=== PATIENT | male | born 1960 | race Caucasian/White ===

== ENCOUNTER 2021-01-06 20:17 | Observation (INO) ==
[2021-01-06 20:51] LABS: Basophils # (auto) 0.05 K/uL (0-0.2); Basophils % (auto) 0.5 %; Eosinophils # (auto) 0.32 K/uL (0-0.5); Eosinophils % (auto) 2.9 %; Hematocrit (blood only) 41.2 % (42-52); Hemoglobin 14.2 g/dL (14.0-18.0); Immature Granulocytes # (auto) 0.03 K/uL (0.00-0.02); Immature Granulocytes % (auto) 0.3 %; Lymphocytes # (auto) 3.24 K/uL (1.2-3.4); Lymphocytes % (auto) 29.6 %; Mean Corpuscular Hemoglobin 28.6 pg (25-34); Mean Corpuscular Hgb Conc 34.5 g/dL (32-36); Mean Corpuscular Volume 83.1 fL (80-100); Mean Platelet Volume 9.5 fL (7.4-10.4); Monocytes # (auto) 0.78 K/uL (0.11-0.59); Monocytes % (auto) 7.1 %; Neutrophils # (auto) 6.54 K/uL (1.4-6.5); Neutrophils % (auto) 59.6 %; Platelet Count 201 K/uL (130-400); RDW Coefficient of Variation 14.2 % (11.5-14.5); RDW Standard Deviation 43.2 fL (36.4-46.3); Red Blood Count 4.96 M/uL (4.7-6.1); White Blood Count 10.96 K/uL (4.8-10.8)
[2021-01-06] MEDS ORDERED: MoRPHine SULFATE 4 MG/ML 1 ML CARP\\VIAL IV STA ×2 (20:57→23:44)
[2021-01-06] MEDS ORDERED: ONDANSETRON INJ 2 MG/ML 2 ML VIAL IV STA (20:57)
[2021-01-06] MEDS ORDERED: SODIUM CHLORIDE 0.9% 1000ML 1,000 ML IV ONE (20:57)
[2021-01-06 21:09] LABS: Alanine Aminotransferase 26 U/L (12-78); Albumin Level 3.9 gm/dl (3.4-5.0); Aspartate Aminotransferase 19 U/L (15-37); BUN Creatinine Ratio 12.3 (10-20); Blood Urea Nitrogen 13 mg/dl (7-18); Calcium 8.9 mg/dl (8.5-10.1); Carbon Dioxide 29 mmol/L (21-32); Chloride 104 mmol/L (98-107); Creatinine Clr Calc Pharmacy 66.2 ml/min; Est GFR (African American) 87.6; Est GFR (Non-African American) 75.6; Glucose 114 mg/dl (70-99); Lipase 264 U/L (73-393); Potassium 3.7 mmol/L (3.5-5.1); Sodium 137 mmol/L (136-145)
[2021-01-06 21:12] LABS: Alkaline Phosphatase 105 U/L (45-117); Bilirubin,Total 0.5 mg/dl (0.2-1); Globulin 3.8 gm/dl (2.5-4.0); Total Protein 7.7 gm/dl (6.4-8.2)
[2021-01-06 21:25] LABS: Troponin I < 0.015 ng/ml (0-0.045)
--- NOTE | 2021-01-06 21:25 | Emergency Department Note ---
History of Present Illness General Chief complaint: Abdominal Pain Stated complaint: ABD. PAIN Time Seen by Provider: 01/06/21 20:41 Source: patient and family (Sister who is at the bedside and driving) Mode of arrival: ambulatory Limitations: no limitations History of Present Illness Maximum Pain Intensity: 7 This patient comes in with abdominal pain and bloating. It started a couple hours ago. He feels bloated he does have IBS but says this feels more severe he has been belching a lot and says that makes him feel better. He had a normal bowel movement at 10:00 in the morning. He has not had the Covid vaccine or the disease. No Covid symptoms specifically denies chest pain or shortness of breath or cough. He does have chronic back pain related to disc but nothing new or different. He had hernia surgery at age 14 and has had bladder cancer surgery that has been done endoscopically. Home Medications Medication Instructions Recorded Confirmed Type simethicone [Gas-X Extra Strength] 375 mg PO ONCE 01/06/21 01/06/21 History Allergies Allergy/AdvReac Type Severity Reaction Status Date / Time No Known Allergies Allergy Unverified 01/06/21 21:42 Past Med/Surg History Social History Smoking Status: Current every day smoker Tobacco Type: Cigarettes Preferred Language: Guinean Review of Systems A total of 10 systems reviewed and were otherwise negative Physical Exam Vital Signs Vital Signs - 24 hr 01/06/21 20:26 01/06/21 21:11 01/06/21 21:30 Temperature 36.6 C Temperature Source Oral Pulse Rate 70 70 73 Pulse Rate from SpO2 Sensor 70 71 Respiratory Rate 18 15 14 Respiratory Effort / Characteristics Non-Labored Spontaneous Respiratory Depth Normal Respiratory Pattern Regular Blood Pressure 160/58 H 131/84 133/92 Blood Pressure Mean 92 99 105 Blood Pressure Position Lying Pulse Oximetry 98 100 100 Oxygen Delivery Method Room Air Room Air Room Air Sepsis Recent Fever Within 48 Hours No Sepsis New/Unexplained Change in Mental Status No Sepsis Action Taken by Nursing No Action Required 01/06/21 22:00 01/06/21 22:30 01/06/21 23:00 Temperature Temperature Source Pulse Rate 77 76 71 Pulse Rate from SpO2 Sensor 76 76 73 Respiratory Rate 14 16 16 Respiratory Effort / Characteristics Respiratory Depth Respiratory Pattern Blood Pressure 127/76 112/73 117/77 Blood Pressure Mean 93 86 90 Blood Pressure Position Pulse Oximetry 99 100 98 Oxygen Delivery Method Room Air Room Air Sepsis Recent Fever Within 48 Hours Sepsis New/Unexplained Change in Mental Status Sepsis Action Taken by Nursing 01/06/21 23:30 01/07/21 00:00 01/07/21 00:30 Temperature Temperature Source Pulse Rate 69 70 75 Pulse Rate from SpO2 Sensor 71 71 75 Respiratory Rate 16 12 20 Respiratory Effort / Characteristics Respiratory Depth Respiratory Pattern Blood Pressure 112/79 122/84 127/85 Blood Pressure Mean 90 96 99 Blood Pressure Position Pulse Oximetry 98 97 97 Oxygen Delivery Method Room Air Sepsis Recent Fever Within 48 Hours Sepsis New/Unexplained Change in Mental Status Sepsis Action Taken by Nursing 01/07/21 01:00 Temperature Temperature Source Pulse Rate 74 Pulse Rate from SpO2 Sensor 75 Respiratory Rate 13 Respiratory Effort / Characteristics Respiratory Depth Respiratory Pattern Blood Pressure 112/78 Blood Pressure Mean 89 Blood Pressure Position Pulse Oximetry 97 Oxygen Delivery Method Sepsis Recent Fever Within 48 Hours Sepsis New/Unexplained Change in Mental Status Sepsis Action Taken by Nursing General: Well developed well nourished middle-age male who appears uncomfortable but in no acute respiratory distress, breathing comfortably on room air. Normal speech HEENT: Normal cephalic atraumatic. Pupils are equal round and reactive to light. Extraocular movements are intact. Oropharynx is pink with moist mucous membranes. No swelling of the mouth lips or tongue. Neck: Supple with a midline trachea. No meningeal signs or stiffness, no JVD or bruits. No Stridor. Chest: Clear to auscultation bilaterally. No wheezes or rhonchi. No increased work of breathing. Heart: Regular rate and rhythm without murmurs or gallops. Abdomen: Soft he does appear to be distended and mildly diffusely tender but without peritonitis and without rebound guarding or rigidity. Extremities: No cyanosis clubbing or edema. No calf tenderness or assymetry Spine/Back. Non tender to palpation. No CVA tenderness Skin: Good turgor without rashes. Neurologic exam: Cranial nerves two through 12 are intact. Motor and sensation are intact and symmetrical throughout. Course Administered Medications Discontinued Medications Sodium Chloride (Nss 1000ml) 1,000 mls @ 999 mls/hr IV .Q1H1M ONE Stop: 01/06/21 21:57 Last Infusion: 01/06/21 22:23 Dose: 0 mls/hr Documented by: [id number] Admin: 01/06/21 21:02 Dose: 999 mls/hr Documented by: [id number] Ioversol (Optiray 300 100ml) 89 ml IV ONCE ONE Stop: 01/06/21 22:07 Last Admin: 01/06/21 22:06 Dose: 89 ml Documented by: [id number] Morphine Sulfate (Morphine Sulfate 4 Mg/Ml 1 Ml Carp\Vial) 4 mg IV NOW STA Stop: 01/06/21 20:58 Last Admin: 01/06/21 21:01 Dose: 4 mg Documented by: [id number] Morphine Sulfate (Morphine Sulfate 4 Mg/Ml 1 Ml Carp\Vial) 4 mg IV NOW STA Stop: 01/06/21 23:45 Last Admin: 01/06/21 23:49 Dose: 4 mg Documented by: [id number] Ondansetron HCl (Ondansetron Inj 2 Mg/Ml 2 Ml Vial) 4 mg IV NOW STA Stop: 01/06/21 20:58 Last Admin: 01/06/21 21:01 Dose: 4 mg Documented by: [id number] Medical Decision Making Differential Diagnosis Bowel obstruction, IBS, AAA, electrolyte or metabolic abnormality, hernia, infection, sepsis, cardiac disease Medical Records Attestation: I reviewed the patient's medical records. Home Medications Current Medication List: was personally reviewed by me Laboratory Data Result diagrams: 01/06/21 20:32 01/06/21 20:32 Lab Results 01/06/21 01/06/21 01/06/21 Range/Units 20:32 20:32 23:45 WBC 10.96 H (4.8-10.8) K/uL RBC 4.96 (4.7-6.1) M/uL Hgb 14.2 (14.0-18.0) g/dL Hct 41.2 L (42-52) % MCV 83.1 (80-100) fL MCH 28.6 (25-34) pg MCHC 34.5 (32-36) g/dL RDW Std Deviation 43.2 (36.4-46.3) fL RDW Coeff of Mena 14.2 (11.5-14.5) % Plt Count 201 (130-400) K/uL MPV 9.5 (7.4-10.4) fL Immature Gran % (Auto) 0.3 % Neut % (Auto) 59.6 % Lymph % (Auto) 29.6 % [place] % (Auto) 7.1 % Eos % (Auto) 2.9 % Baso % (Auto) 0.5 % Neut # (Auto) 6.54 H (1.4-6.5) K/uL Lymph # (Auto) 3.24 (1.2-3.4) K/uL [place] # (Auto) 0.78 H (0.11-0.59) K/uL Eos # (Auto) 0.32 (0-0.5) K/uL Baso # (Auto) 0.05 (0-0.2) K/uL Immature Gran # (Auto) 0.03 H (0.00-0.02) K/uL Sodium 137 (136-145) mmol/L Potassium 3.7 (3.5-5.1) mmol/L Chloride 104 (98-107) mmol/L Carbon Dioxide 29 (21-32) mmol/L Anion Gap 4.0 (3-11) BUN 13 (7-18) mg/dl Creatinine 1.07 (0.6-1.4) mg/dl Est Cr Clr Drug Dosing 66.2 ml/min Est GFR ( Amer) 87.6 Est GFR (Non-Af Amer) 75.6 BUN/Creatinine Ratio 12.3 (10-20) Glucose 114 H (70-99) mg/dl Calcium 8.9 (8.5-10.1) mg/dl Total Bilirubin 0.5 (0.2-1) mg/dl AST 19 (15-37) U/L ALT 26 (12-78) U/L Alkaline Phosphatase 105 (45-117) U/L Troponin I < 0.015 (0-0.045) ng/ml Total Protein 7.7 (6.4-8.2) gm/dl Albumin 3.9 (3.4-5.0) gm/dl Globulin 3.8 (2.5-4.0) gm/dl Albumin/Globulin Ratio 1.0 (0.9-2) Lipase 264 (73-393) U/L COVID-19 Eval Order CovFluRsv at [facility] Imaging Data Attestation: I personally reviewed and interpreted this imaging study as follows: Radiologist's Impression: Abdomen/Pelvis CT 04/24/21 20:58 CT SCAN OF THE ABDOMEN AND PELVIS WITH IV CONTRAST CLINICAL HISTORY: Left-sided abdominal pain. COMPARISON STUDY: No priors. TECHNIQUE: Following the IV administration of 89 cc of Optiray 300, CT scan of the abdomen and pelvis is performed from the lung bases to the proximal femora. Images are reviewed in the axial, sagittal, and coronal planes. IV contrast was administered without complication. A dose lowering technique was utilized adhering to the principles of ALARA. CT DOSE: 253.29 mGy.cm FINDINGS: Lung bases: The heart is normal in size and without pericardial effusion. Em physematous change is noted at the lung bases. There is bibasilar scarring/atelectasis. No airspace consolidation or pleural effusion is identified. Liver: The contrast-enhanced liver is mildly enlarged, measuring 18.3 cm in length. Attenuation is heterogeneous. There is no intrahepatic biliary ductal dilatation. The hepatic veins and portal veins are patent. Gallbladder: Unremarkable. Spleen: Normal in size and attenuation. Pancreas: Unremarkable. Adrenal glands: Unremarkable. Kidneys: The contrast enhanced kidneys are normal in size and without hydronephrosis. The kidneys enhance symmetrically. A 1.5 cm cyst is seen in the right upper pole. A punctate nonobstructing calculus is noted in the left lower pole. Abdominal vasculature: The abdominal aorta is normal in course and caliber noting moderate to advanced atherosclerotic calcification. Bowel: The small bowel loops are mildly distended and fluid-filled measuring up to 2.8 cm in diameter. Scattered air-fluid levels are noted. The distal small bowel loops and colon are relatively decompressed. A discrete transition point is not identified. No thick walled bowel loops are identified. There is no pneumatosis intestinalis or portal venous gas. The appendix is normal as visualized. Peritoneum: There is no intraperitoneal free air or abdominal ascites. Lymphadenopathy: None. Pelvic viscera: The prostate gland is mildly enlarged and heterogeneous noting median lobe hypertrophy. The bladder wall is thickened and trabeculated suggesting chronic outlet obstruction. A 9 mm enhancing nodule is suggested along the posterior wall of the bladder on image #333. Skeletal structures: The skeletal structures are osteopenic. There is mild lumbosacral spondylosis. No lytic or blastic lesions are seen. Soft tissues: The patient is cachectic. IMPRESSION: 1. The proximal small bowel loops are distended and fluid-filled, and the distal small bowel is decompressed. Although a discrete transition point is not identified, the appearance suggests a low-grade/developing small bowel obstruction. 2. No thick walled bowel loops identified. There is no pneumatosis intestinalis, portal venous gas, or intraperitoneal free air. 3. Emphysema. 4. Prostatomegaly with evidence of chronic bladder outlet obstruction. 5. A 9 mm enhancing nodule is identified along the posterior wall of the bladder. Although this could represent median lobe hypertrophy of the prostate gland, a bladder neoplasm is to be excluded. Follow-up with urology is recommended. 6. There is a punctate nonobstructing left kidney stone. 7. Additional findings as above. ACT 112: Positive. There are findings on this exam that require communication between the performing entity and the patient following Patient Test Result Information Act ([place] Act 112) guidelines. Electronically signed by: Venu Alberto M.D. 01/06/2021 10:42 PM ECG Data Attestation: I personally reviewed and interpreted this ECG as follows: Indication: + abdominal pain Rate (beats per minute): 72 Rhythm: + normal sinus ECG Intervals/blocks: + Normal QRS and + Normal QT ECG Rio: + Normal ECG ST segments: + Normal ST segments ECG Findings: no PACs and no PVCs Comparison ECG Date: no prior available MDM Narrative This patient comes in as described above. He has abdominal pain and distention and appears uncomfortable. He is not driving. IV access wasestablished and he was hydrated with IV normal saline bolus. He was also given morphine 4 mg IV and Zofran 4 mg IV. EKG was obtained and multiple blood testing was obtained as well. I did order a CAT scan with IV contrast. He has has only a mildly elevated white count but no fever to suggest infection. No significant anemia. No significant electrolyte or metabolic abnormalities. Nothing to suggest liver gallbladder or pancreas disease. He was feeling better with the morphine but then after CAT scan started feeling worse was given additional IV morphine. CAT scan shows a possible evolving small bowel obstruction. There is no discrete transition point. He is not vomiting. He does feel better with belching. Additionally on the CAT scan there is a small area in the bladder near the prostate which could be a lesion or part of the prostate. The patient has had bladder cancer before I recommended that he follow-up and get this rechecked by his urologist. I do not think is causing his symptoms today. I do think he needs to be admitted/observe for bowel rest, IV hydration, observation and further treatment and evaluation. I have consulted Dr. Jean to see the patient in ER for these measures. Impression & Plan SBO (small bowel obstruction), Abdominal pain, Lab test negative for COVID-19 virus, History of bladder cancer Discharge Plan Visit Data Chief Complaint: Abdominal Pain Stated Complaint: ABD. PAIN ED Provider: Jean Infante Discharge Problem: SBO (small bowel obstruction), Abdominal pain, Lab test negative for COVID-19 virus, History of bladder cancer Forms Stand Alone Forms: My [facility] [employer] Prescriptions Prescriptions: No Action simethicone [Gas-X Extra Strength] 125 mg Tablet,Chewable 375 mg PO ONCE RF: 0 Discharge Problem: Abdominal pain Qualifiers: Abdominal location: generalized Qualified Code(s): R10.84 - Generalized abdominal pain
[2021-01-06] MEDS ORDERED: OPTIRAY 300 100mL IV ONE (22:06)
--- NOTE | 2021-01-06 22:43 | CT Scan Report ---
CT SCAN OF THE ABDOMEN AND PELVIS WITH IV CONTRAST CLINICAL HISTORY: Left-sided abdominal pain. COMPARISON STUDY: No priors. TECHNIQUE: Following the IV administration of 89 cc of Optiray 300, CT scan of the abdomen and pelvi s is performed from the lung bases to the proximal femora. Images are reviewed in the axial, sagittal , and coronal planes. IV contrast was administered without complication. A dose lowering technique wa s utilized adhering to the principles of ALARA. CT DOSE: 253.29 mGy.cm FINDINGS: Lung bases: The heart is normal in size and without pericardial effusion. Emphysematous change is not ed at the lung bases. There is bibasilar scarring/atelectasis. No airspace consolidation or pleural e ffusion is identified. Liver: The contrast-enhanced liver is mildly enlarged, measuring 18.3 cm in length. Attenuation is he terogeneous. There is no intrahepatic biliary ductal dilatation. The hepatic veins and portal veins a re patent. Gallbladder: Unremarkable. Spleen: Normal in size and attenuation. Pancreas: Unremarkable. Adrenal glands: Unremarkable. Kidneys: The contrast enhanced kidneys are normal in size and without hydronephrosis. The kidneys enh ance symmetrically. A 1.5 cm cyst is seen in the right upper pole. A punctate nonobstructing calculus is noted in the left lower pole. Abdominal vasculature: The abdominal aorta is normal in course and caliber noting moderate to advance d atherosclerotic calcification. Bowel: The small bowel loops are mildly distended and fluid-filled measuring up to 2.8 cm in diameter . Scattered air-fluid levels are noted. The distal small bowel loops and colon are relatively decompr essed. A discrete transition point is not identified. No thick walled bowel loops are identified. The re is no pneumatosis intestinalis or portal venous gas. The appendix is normal as visualized. Peritoneum: There is no intraperitoneal free air or abdominal ascites. Lymphadenopathy: None. Pelvic viscera: The prostate gland is mildly enlarged and heterogeneous noting median lobe hypertroph y. The bladder wall is thickened and trabeculated suggesting chronic outlet obstruction. A 9 mm enhan cing nodule is suggested along the posterior wall of the bladder on image #333. Skeletal structures: The skeletal structures are osteopenic. There is mild lumbosacral spondylosis. N o lytic or blastic lesions are seen. Soft tissues: The patient is cachectic. IMPRESSION: 1. The proximal small bowel loops are distended and fluid-filled, and the distal small bowel is decom pressed. Although a discrete transition point is not identified, the appearance suggests a low-grade/ developing small bowel obstruction. 2. No thick walled bowel loops identified. There is no pneumatosis intestinalis, portal venous gas, o r intraperitoneal free air. 3. Emphysema. 4. Prostatomegaly with evidence of chronic bladder outlet obstruction. 5. A 9 mm enhancing nodule is identified along the posterior wall of the bladder. Although this could represent median lobe hypertrophy of the prostate gland, a bladder neoplasm is to be excluded. Follo w-up with urology is recommended. 6. There is a punctate nonobstructing left kidney stone. 7. Additional findings as above. ACT 112: Positive. There are findings on this exam that require communication between the performing entity and the patient following Patient Test Result Information Act ([place] Act 112) guidelines. Electronically signed by: Venu Alberto M.D. 01/06/2021 10:42 PM
[2021-01-07] MEDS ORDERED: ONDANSETRON INJ 2 MG/ML 2 ML VIAL IV PRN (01:03)
[2021-01-07] MEDS ORDERED: MoRPHine SULFATE 4 MG/ML 1 ML CARP\\VIAL IV PRN (01:03)
--- NOTE | 2021-01-07 01:15 | History & Physical Report ---
Date of Service January 07, 2021 Assessment & Plan (1) SBO (small bowel obstruction): 60 yo M PMHx IBS, heavy smoker, history bladder cancer admitted for SBO. SBO: Abdominal pain since this afternoon, waxing and waning, with associated nausea, belching. CTAP this admission with findings of low grade / developing SBO. History of abdominal hernia repair. No history of colon cancer, and UTD on colonoscopy for routine colon cancer screening. NPO with NSS @ 100cc/hr. IV morphine and zofran prn pain/nausea. NGT placed by primary team given tympanitic and distended abdominal exam. Serial abdominal exams. General Surgery consult placed, to see in AM. Hx bladder cancer: History of, follows with Urology. Seen 3 months ago and had cystoscopy which was normal at that time. This admission CTAP shows 9mm bladder lesion. Follow up with Urology on discharge. Smoking abuse: History of. Does not desire nicotine patch. Encouraged cessation. Code Status: FULL CODE DVT ppx: SCDs FEN: NPO, NSS @ 100cc/hr Dispo: Med/Surg with Telemetry, General Surgery consult, serial abdominal exams, NGT (2) Lesion of bladder: History of Present Illness Chief Complaint: abdominal pain Primary Care Provider: NO PCP 60 yo M PMHx IBS, heavy smoker, history bladder cancer presented to the ER with abdominal pain. Hails from [place], but has been in [place] for the last 8 weeks helping his father get his affairs in order (he had stage 4 metastatic pancreatic cancer, and on ). Today he developed waxing and waning moderate to severe abdominal pain with associated anorexia and nausea without emesis. Pain is worse with certain positions including lying on his left side. He has also been belching a lot today. No recent fevers or chills, diarrhea, headache, dizziness, chest pain, SOB. Last BM yesterday. Does have a history of a RLQ hernia repair when he was 14. He is UTD on his colonoscopies for colon cancer screening; last done about a month or so ago which he was told was normal and "good for 5 years". In the ER had CTAP which showed developing SBO. Patient was given IV morphine and Zofran and hospitalist services was consulted for admission. Allergies Allergy/AdvReac Type Severity Reaction Status Date / Time No Known Allergies Allergy Unverified 01/06/21 21:42 Home Medications Medication Instructions Recorded Confirmed Type simethicone [Gas-X Extra Strength] 375 mg PO ONCE 01/06/21 01/06/21 History Past Med/Surg History Social History Smoking Status: Current every day smoker Tobacco Type: Cigarettes Preferred Language: Mohawk Review of Systems Review of Systems: All systems reviewed & are unremarkable except as noted in HPI & below Constitutional: + malaise; no fever and no chills Respiratory: no cough and no dyspnea Cardiovascular: no chest pain, no palpitations and no edema Gastrointestinal: + abdominal pain; no constipation and no diarrhea/loose stools Physical Exam Constitutional: WD/WN, vitals as above Eyes: PERRL, conjunctivae normal, anicteric sclerae ENMT: external ear and nose normal, oropharynx normal Neck: normal visual inspection Respiratory: normal respiratory effort, lungs clear to auscultation Cardiovascular: RRR, no murmur, no edema Gastrointestinal (Abdomen): Inspection/Auscultation: + abdomen distended Percussion/Palpation: + abdomen tender (diffuse, moderate), + tympanic to percussion and + abdomen firm; no guarding Musculoskeletal: no cyanosis or clubbing, extremities motor strength 5/5 Skin: no rashes, warm and dry Neurologic: AAOx3, normal speech. No tremor Psychiatric: Orientation: alert and oriented x 3 Affect: euthymic affect Results & Data Results & Data ([facility]) Vital Signs (Past 12 Hours) Vital Signs Temp Pulse Resp BP Pulse Ox 01/07/21 00:30 75 20 127/85 97 01/07/21 00:00 70 12 122/84 97 01/06/21 23:30 69 16 112/79 98 01/06/21 23:00 71 16 117/77 98 01/06/21 22:30 76 16 112/73 100 01/06/21 22:00 77 14 127/76 99 01/06/21 21:30 73 14 133/92 100 01/06/21 21:11 70 15 131/84 100 01/06/21 20:26 36.6 C 70 18 160/58 H 98 Resident Activity Tracking Resident Involvement: Resident Care Provided Care Provided: Adult [facility] Medicine
[2021-01-07 01:43] LABS: Influenza A virus by PCR Negative (Neg); Influenza B virus by PCR Negative (Neg); RSV by PCR Negative (Neg); SARS CoV2 RNA(COVID-19) InHosp NEGATIVE (Negative)
[2021-01-07 01:58] LABS: Magnesium 2.4 mg/dl (1.8-2.4)
[2021-01-07] MEDS: SODIUM CHLORIDE 0.9% 1000ML 1,000 ML IV SCH ×2 (02:35→12:20)
[2021-01-07] MEDS: ACETAMINOPHEN 1000 MG/100 ML IV IV SCH ×2 (02:36→08:31)
[2021-01-07 04:56] LABS: Appearance Urine Clear (Clear); Bilirubin Urine Negative (Negative); Blood Urine Negative (Negative); Color Urine Yellow; Glucose Urine UA Negative (Negative); Ketones Urine Trace (Negative); Leukocyte Esterase Urine Negative (Negative); Nitrite Urine Negative (Negative); Protein Urine Negative (Negative); Specific Gravity Urine > 1.045 (1.000-1.030); Urobilinogen Urine Negative (Negative)
--- NOTE | 2021-01-07 06:39 | Surgery Consultation ---
Date of Consultation January 07, 2021 Assessment & Plan (1) SBO (small bowel obstruction): Patient has been admitted to the hospital by the medical service. Patient has had an NG tube inserted in the emergency department we will continue this modality until improved bowel function has been returned Provide IV fluid for hydration Provide analgesics Provide antiemetics Once patient has had return of bowel function will consider removing his NG tube with diet advancement subsequently thereafter. We will continue to follow along with the patient is hospitalized Supervising Physician Co-Signing Physician Notes Patient seen and examined, labs and imaging reviewed, agree with above. 60-year-old male with history of IBS and no major abdominal surgery presented to the ER with complaints of abdominal pain and cramping. No flatus since yesterday after morning. Did have a bowel movement yesterday morning. On exam he is afebrile stable vitals. His abdomen is soft, nontender, mildly distended. Labs unremarkable except for a mild leukocytosis. CT scan with minimally distended small bowel with no discrete transition point, may represent partial small bowel obstruction versus an enteritis. At this point we will manage nonoperatively. He may need further GI follow-up if he gets through this without an operation. Surgery will follow. History of Present Illness Reason for Consultation: Small bowel obstruction Attending Physician: Kathleen Jean DO History of Present Illness This is a 60-year-old male who presented to the emergency department last evening secondary to abdominal pain. His abdominal pain began yesterday evening at about 6:00. He does report history of IBS notes he does get abdominal pain of a similar nature from time to time but his pain became so severe that he presented to the emergency department. He denies any fevers, shakes, chills. He denies any nausea vomiting at the present time but did have nausea vomiting earlier. He does note that he had a normal bowel movement yesterday morning but since his pain began he has not passed any flatus or had a bowel movement. He notes that he has not had any abdominal surgeries other than a right inguinal herniorrhaphy in the past. In the emergency department the patient had labs and imaging performed which were independently reviewed by myself. He did have a CT scan of the abdomen that showed concern for a low-grade small bowel obstruction. CBC revealed his white blood cell count was 10.9. His hemoglobin was in the normal range as was his platelet count. Chemistry profile revealed his sodium, potassium, BUN, and creatinine were all within normal range. A lactate level was not elevated. Covid test was performed and was noted to be negative. At the time of my interview the patient was in no distress. Allergies Allergy/AdvReac Type Severity Reaction Status Date / Time No Known Allergies Allergy Unverified 01/06/21 21:42 Home Medications Medication Instructions Recorded Confirmed Type simethicone [Gas-X Extra Strength] 375 mg PO ONCE 01/06/21 01/06/21 History Patient History Social History Smoking Status: Current every day smoker Tobacco Type: Cigarettes Hx Alcohol Use: No Hx Substance Use: No Preferred Language: Danish [employer] Required: No Beliefs That Will Affect Care: None Current Living Situation: Alone Feels Safe at Home: Yes Safety Concerns: Feels Safe At This Time Review of Systems Constitutional: no fever and no chills Eyes: no diplopia Ear, Nose, Mouth, Throat: no ear pain Respiratory: no cough and no dyspnea Cardiovascular: no chest pain Gastrointestinal: + abdominal pain, + nausea and + vomiting Genitourinary: no dysuria Musculoskeletal: no back pain Integumentary: no rash Neurologic: no localized weakness Physical Exam Constitutional: well developed and well nourished; no acute distress Eyes: no conjunctival abnormality ENMT: Ears: no hearing impairment Neck: trachea midline Respiratory: normal respiratory effort, lungs clear to auscultation Cardiovascular: Rate/Rhythm: regular rate and regular rhythm Gastrointestinal (Abdomen): Abdomen is nondistended and soft. Bowel sounds are present. There is no rebound tenderness or guarding. Patient did have some generalized pain with palpation which appeared to be greatest on the left side of his abdomen. Musculoskeletal: No calf tenderness Skin: no rashes, warm and dry Neurologic: moves all extremities Psychiatric: A+Ox3, euthymic affect Results & Data ([facility]) Vital Signs (Past 12 Hours) Vital Signs Temp Pulse Pulse Resp BP BP Pulse Ox 01/07/21 04:38 60 16 100/72 96 01/07/21 01:30 63 18 136/76 98 01/07/21 01:00 74 13 112/78 97 01/07/21 00:30 75 20 127/85 97 01/07/21 00:00 70 12 122/84 97 01/06/21 23:30 69 16 112/79 98 01/06/21 23:00 71 16 117/77 98 01/06/21 22:30 76 16 112/73 100 01/06/21 22:00 77 14 127/76 99 01/06/21 21:30 73 14 133/92 100 01/06/21 21:11 70 15 131/84 100 01/06/21 20:26 36.6 C 70 18 160/58 H 98 PG Care Time/CCT Total # of Minutes Spent Total Time Spent with Patient: Total time spent is greater than 50% in coordination of care (as documented) at patient's floor/unit and/or counseling patient: Coding Level of Care Code 10222 Inpt Consult Level 5 Diagnoses SBO (small bowel obstruction) K56.609
--- NOTE | 2021-01-07 07:40 | XRay Report ---
KUB CLINICAL HISTORY: NGT placement COMPARISON STUDY: CT of the abdomen and pelvis January 06, 2021. FINDINGS: Tip of nasogastric tube is within the body of the stomach. Several loops of mildly dilated small bowel are noted. IMPRESSION: Tip of nasogastric tube within the body of the stomach. ACT 112: Negative or not required by law. Electronically signed by: Jan Galan M.D. 01/07/2021 7:39 AM
--- NOTE | 2021-01-07 09:43 | Electrocardiogram Report ---
Test Reason : Blood Pressure : / mmHG Vent. Rate : 072 BPM Atrial Rate : 072 BPM P-R Int : 162 ms QRS Dur : 096 ms QT Int : 418 ms P-R-T Axes : 079 064 077 degrees QTc Int : 457 ms Normal sinus rhythm with sinus arrhythmia Normal ECG No previous ECGs available Confirmed by Amado Doty ([id number]) on 01/07/2021 9:42:51 AM Referred By: REFERRED SELF Confirmed By:Amado Doty
--- NOTE | 2021-01-07 11:01 | Communication Note ---
Date of Service: January 07, 2021 Patient seen at bedside this morning. Alert, no acute distress. Patient reports that he does not have any history of cardiac disease, had some low rib pain related to gas and had a normal stress test with his home provider recently. He reports a history of bladder cancer in 2016 with regular surveillance, no recurrence with last cystoscopy in August. Reports his symptoms began with distention and abdominal pain, has not had vomiting but has noted some belching. No flatus in approximately 24 hours, last bowel movement day prior to admission. Can use to feel somewhat bloated, has some relief from the NGT to low intermittent suction but reports that he would like to be able to walk which normally helps improve his bloating. Pain is 34 out of 10, was 10+ prior to admission. Assessment/plan update: Small bowel obstruction - CT-A/P: The proximal small bowel loops are distended and fluid-filled, and the distal small bowel is decompressed. Although a discrete transition point is not identified, the appearance suggests a low-grade/developing small bowel obstruction. No thick walled bowel loops identified. There is no pneumatosis intestinalis, portal venous gas, or intraperitoneal free air. Emphysema. Prostatomegaly with evidence of chronic bladder outlet obstruction. A 9 mm enhancing nodule is identified along the posterior wall of the bladder. Although this could represent median lobe hypertrophy of the prostate gland, a bladder neoplasm is to be excluded. Follow-up with urology is recommended. There is a punctate nonobstructing left kidney stone. NGT in place. May clamp as tolerated and disconnect patient may ambulate. If bloating/stomach pains worsens may reconnect to low intermittent suction. N.p.o. NSS 100 cc/h Pain control. Morphine converted to 0.5 mg hydromorphone IV every 34 hours, minimize opioid-induced analgesia or possible - Surgery consulted on admission, tx medically at this time. Appreciate recs. Zofran as needed History of bladder cancer Follows with [id number], had a normal cystoscopy in August CT as above shows a 9 mm bladder lesion, a represent scarring or artifact from the prostate. Discussed with patient, recommend follow-up as outpatient when he returns home. Tobacco abuse Declines nicotine patch CODE STATUS: Full code DVT prophylaxis: SCDs, ambulation FEN: N.p.o., NSS at 100 cc/h Disposition: Med/surgical Attending note: I also saw the patient with the resident physician and confirmed dolan portions of the history and exam as noted above. Please see the discharge note of the same day for additional details. Resident Activity Tracking Resident Involvement: Resident Care Provided Care Provided: [facility]
[2021-01-07] MEDS ORDERED: HYDROmorphone INJ 0.5 MG/0.5 ML SYR IV PRN (12:23)
--- NOTE | 2021-01-07 14:44 | Discharge Summary ---
Date of Service January 07, 2021 Admission HPI Per Admitting Provider 60 yo M PMHx IBS, heavy smoker, history bladder cancer presented to the ER with abdominal pain. Hails from [place], but has been in [email or web address] for the last 8 weeks helping his father get his affairs in order (he had stage 4 metastatic pancreatic cancer, and on ). Today he developed waxing and waning moderate to severe abdominal pain with associated anorexia and nausea without emesis. Pain is worse with certain positions including lying on his left side. He has also been belching a lot today. No recent fevers or chills, diarrhea, headache, dizziness, chest pain, SOB. Last BM yesterday. Does have a history of a RLQ hernia repair when he was 14. He is UTD on his colonoscopies for colon cancer screening; last done about a month or so ago which he was told was normal and "good for 5 years". In the ER had CTAP which showed developing SBO. Patient was given IV morphine and Zofran and hospitalist services was consulted for admission. Admission Exam Per Admitting Provider Constitutional: WD/WN, vitals as above Eyes: PERRL, conjunctivae normal, anicteric sclerae ENMT: external ear and nose normal, oropharynx normal Neck: normal visual inspection Respiratory: normal respiratory effort, lungs clear to auscultation Cardiovascular: RRR, no murmur, no edema Gastrointestinal (Abdomen): Inspection/Auscultation: + abdomen distended Percussion/Palpation: + abdomen tender (diffuse, moderate), + tympanic to percussion and + abdomen firm; no guarding Musculoskeletal: no cyanosis or clubbing, extremities motor strength 5/5 Skin: no rashes, warm and dry Neurologic: AAOx3, normal speech. No tremor Psychiatric: Orientation: alert and oriented x 3 Affect: euthymic affect Principal Diagnosis SBO Discharge Exam N/A Left AMA Discharge Data Allergies Allergy/AdvReac Type Severity Reaction Status Date / Time No Known Allergies Allergy Unverified 01/06/21 21:42 Consultations 01/06/21 23:58 ED Decision to Admit Stat 01/07/21 02:16 Consult General Surgery Routine Ordered Studies 01/06/21 20:58 CT abd pelvis IV con only Stat Hospital Course (1) SBO (small bowel obstruction): * PT DISCHARGE AGAINST MEDICAL ADVICE * Mr. Paredes is a 60 yo M PMHx IBS, heavy smoker, history bladder cancer admitted for SBO. Small bowel obstruction - CT-A/P: The proximal small bowel loops are distended and fluid-filled, and the distal small bowel is decompressed. Although a discrete transition point is not identified, the appearance suggests a low-grade/developing small bowel obstr uction. No thick walled bowel loops identified. There is no pneumatosis intestinalis, portal venous gas, or intraperitoneal free air. Emphysema. Prostatomegaly with evidence of chronic bladder outlet obstruction. A 9 mm enhancing nodule is identified along the posterior wall of the bladder. Although this could represent median lobe hypertrophy of the prostate gland, a bladder neoplasm is to be excluded. Follow-up with urology is recommended. There is a punctate nonobstructing left kidney stone. - Patient was admitted for symptoms of small bowel obstruction with imaging findings above. He was treated with NGT decompression, n.p.o., and pain control initially morphine converted to hydromorphone. Surgery was consulted and recommended continued medical management. CT of the abdomen and pelvis did not show transition point, but showed developing bowel obstruction. Images and radiology reads were reviewed in person with the patient. The risks of inadequately treated small bowel obstruction including inability to tolerate adequate oral nutrition/fluids, progression to worsening or complete bowel obstruction which can lead to complications including but not limited to worsening pain, infection, perforation, failure to resolve, and necessitation of surgery intervention/bowel removal for worsened disease reviewed in person with the patient. He expressed an understanding of his medical condition, and the risks of inadequately treated obstruction and of potentially worsening of obstruction. He reported that he understands these risks but would still like to leave AGAINST MEDICAL ADVICE without further observation or treatment. Forms were completed, and pt was encouraged to stay and especially to return for any worsening signs or symptoms. History of bladder cancer Follows with [id number], had a normal cystoscopy in August CT as above shows a 9 mm bladder lesion, possibly representing scarring or artifact from the prostate. Discussed with patient, recommend follow-up as outpatient when he returns home. Tobacco abuse Declined nicotine patch (2) Lesion of bladder: Total Time Total Time Spent Total Time Spent (In Minutes): See Attending Doc Discharge Plan Discharge Items Patient Disposition: Against Medical Advice Reason For Visit: SBO Discharge Diagnosis: Developing SBO Activity: Per Instructions section Non-emergency contact: Primary Care Provider Call non-emergency contact if: you have any medication questions, your symptoms worsen, your pain is not controlled, your pain is worsening, your pain is unusual for you, your pain is concerning for you and you have a fever Follow-up/Referrals: PCP,NO [Primary Care Provider] - Diet: Other - See Diet Comment Addtl Attending Provider Instructions: You are seen in the hospital for abdominal pain and bloating with imaging and evaluation consistent with a small bowel obstruction. You were initially treated with stomach decompression using an NG tube. Your CT scan of the abdomen showed dilated and fluid-filled loops of small bowel consistent with a developing small bowel obstruction. The images and information regarding these reports was reviewed with you during admission. It was medically recommended that you remain for observation with IV hydration, no fluids/food by mouth, pain control, serial exams, and NG tube with additional medications as needed to manage this condition. The risks of inadequately treated small bowel obstruction include inability to tolerate adequate oral nutrition/fluids, progression to worsening or complete bowel obstruction which can lead to complications including but not limited to worsening pain, infection, perforation, failure to resolve, and necessitation of surgery intervention/bowel removal for worsened disease. You expressed understanding and acknowledgement of these risks, and that you would like to leave against medical advice. Concern was expressed with your providers for your disease to worsen. Continue to recommend he remain in the hospital, and that if you any experience worsening disease including worsening pain, fever, nausea, vomiting, or other new or concerning symptoms it is recommended that you return to the emergency department. Pending Studies at Discharge: No Stand-Alone Forms: My [facility], Smoking Cessation Medications and DC Order Prescriptions: Discontinued simethicone [Gas-X Extra Strength] 125 mg Tablet,Chewable 375 mg PO ONCE RF: 0 Discharge Orders: Left Against Medical Advice (Routine); Ordered 01/07/21 Ordered By: Bobby Ellis Admission Data Admit Date/Time: 01/07/21 01:03 Attending Provider: Mehrdad Rios Admit Provider: Rylie Gonzalez Primary Care Provider: PCP,NO Other Providers: Kathleen Jean ; Daniel Hernandez ; Owen Goodwin ; Andrew Roberson ; Александр Morrell Jr ; Brian Patel ; Salinas Conley ; Christa Hirsch ; oCrky Llanos ; Ish Plummer Supervising Physician Co-Signing Physician Notes I also saw the patient with the resident physician and confirmed dolan portions of the history and physical examination. I agree with the impression and plan as noted in the resident discharge documentation. Briefly, 60-year-old male with history of IBS and bladder cancer -visiting the area due to the recent of his father -admitted early this morning after he developed abdominal pain and cramping. He has had no flatus since yesterday morning; he did have a bowel movement yesterday morning, but no flatus since then. NG tube was placed to low intermittent suction and the patient had relief. When we first saw the patient this morning, he was still in the analy rgency department awaiting bed placement. Over the course of the day, he noted improvement in his symptoms. The patient desired to be discharged. We explained that we would like to keep him another night, slowly advance his diet, and recheck a radiograph in the morning. However, despite these recommendations, the patient decided that he would like to return home. He signed out AGAINST MEDICAL ADVICE. We did give him follow-up instructions to return to the hospital if he has increased nausea, emesis, or abdominal pain. Resident Activity Tracking Resident Involvement: Resident Care Provided Care Provided: Adult [facility]
--- NOTE | 2021-01-08 06:06 | Billing Data ---
Date of Service January 07, 2021 Coding Level of Care Code 68060 OBS Care - Level 2
== END 2021-01-07 15:05 | disposition left against medical advice (07) ==
LOC: ED 20:17 → EDINP 20:17 → SUATTDRO 01-07 01:03 → 3N 01-07 10:53 → EDINP 01-07 12:48